=== PATIENT | male | born 1995 | race Caucasian/White ===

== ENCOUNTER → 2017-03-19 | Outpatient (CLI) | payer OTHER | LOC: KOH-I 13:10 | DX: S20.212A Contusion of left front wall of thorax, initial encounter (principal) | CPT/HCPCS: 71101 ==

== ENCOUNTER 2021-04-13 19:23 | Emergency (ER) | payer OTHER ==
[~2021-04-13 19:23] MED LIST: AUGMENTIN 875-1 EACH PO; DOXYCYCLINE MO100 MG PO; IBUPROFEN600 MG PO; LODINE CAP 300300 MG PO; MEDROL4 MG PO; NAPROSYN500 MG PO; OMNICEF 300 MG300 MG PO; PREDNISONE 20 M20 MG PO; PROVENTIL HFA6.7 GM INH; ROBITUSSIN AC480 ML PO; TORADOL 10 MG T10 MG PO; VENTOLIN HFA 66.7 GM INH; ZITHROMAX500 MG PO
[2021-04-13 23:58] LABS: HEMOGLOBIN 14.8 gm/dl (14.0-17.5); RED BLOOD COUNT 4.93 M/UL (4.20-5.50); WHITE BLOOD COUNT 8.9 K/UL (4.5-11.0)
[2021-04-14 00:13] LABS: BUN/CREATININE RATIO 17 (0-10)
== END 2021-04-14 02:30 | disposition short-term general hospital (02) ==
LOC: ER1 19:23
PROVIDERS: Physician Assistant
DX: R32 Unspecified urinary incontinence (principal); M54.5 Low back pain; R20.2 Paresthesia of skin
CPT/HCPCS: 72131; 80053; 81001; 85025; 85652; 86140; 87086; 96374; 96375; 99284; J1100; J1885; J2270

== ENCOUNTER → 2021-09-14 | Outpatient (CLI) | payer OTHER | LOC: KOH-I 13:00 | DX: N28.1 Cyst of kidney, acquired (principal) | CPT/HCPCS: 76775 ==

== ENCOUNTER → 2021-10-12 | Outpatient (CLI) | payer OTHER | LOC: CT 07:46 | DX: N28.89 Other specified disorders of kidney and ureter (principal); K76.0 Fatty (change of) liver, not elsewhere classified | CPT/HCPCS: 74170; Q9967 ==